=== PATIENT | male | born 1975 | race Caucasian/White ===

== ENCOUNTER 2024-02-07 10:26 | Emergency (ER) | payer OTHER, SELFPAY ==
[2024-02-07] MEDS ORDERED: FENTANYL CITR 100 MCG/2 ML ONE (10:42)
[2024-02-07] MEDS ORDERED: TDAP (DIPHTH,PERTUSS(ACELL),TET VAC) 0.5 ML VIAL IMVAC ONE (10:42)
--- NOTE | 2024-02-07 11:14 | RAD REPORT ---
EXAM DESCRIPTION: CT - Head C Spine Antione Feldman - 02/07/2024 10:53 am CLINICAL HISTORY: Head and neck injury with chest and abdominal pain status post fall. Head and neck pain . TECHNIQUE: Computed axial tomography of the head and cervical spine was obtained Computed axial tomography of the chest, abdomen and pelvis was obtained. 100 cc Isovue-300 was given intravenously coronal and sagittal reconstruction was performed. All CT scans are performed using dose optimization technique as appropriate and may include automated exposure control or mA/KV adjustment according to patient size. COMPARISON: None FINDINGS: An intracranial bleed is not seen. The ventricles are normal in caliber. An extra-axial fl uid collection is not noted. Fluid within the sinuses is not seen A cervical fracture is not seen. No dislocation is seen. Mild posterior subluxation C4 on C5 probably chronic. A mediastinal hematoma is not noted. A pleural effusion is not present. A lung contusion is not seen. The liver, spleen, pancreas, adrenals, kidneys and bladder do not demonstrate an acute traumatic inju ry Moderate anterior subluxation of L5 on S1 with sclerosis of the vertebral endplates. Spondylolysis L5 IMPRESSION: No acute intracranial abnormality is seen A cervical fracture is not visualized. If the patient continues have symptoms to suggest intracranial /spinal cord pathology then MRI would be recommended. No acute traumatic injury involving the chest, abdomen or pelvis is seen.
[2024-02-07 11:19] LABS: Absolute Basophils 0.1 K/uL (0-0.5); Absolute Eosinophils 0.2 K/uL (0-0.5); Absolute Lymphocytes (CBC) 1.8 K/uL (0.7-4.9); Absolute Monocytes 0.4 K/uL (0.1-1.3); Absolute Neutrophil 3.3 K/uL (1.8-8.0); Basophils % 1.1 % (0-1.3); Eosinophils % 3.2 % (0-4.4); Hematocrit 41.1 % (39.6-49.0); Hemoglobin 13.6 g/dL (13.6-17.9); Lymphocytes % 31.4 % (15.3-44.8); MCH 29.5 pg (27.0-35.0); MCHC 33.2 g/dL (32.0-36.0); MPV 8.1 fL (7.6-11.3); Monocytes % 7.6 % (3.3-12.3); Neutrophils % 56.7 % (41.7-73.7); Platelets 194 thou/uL (152-406); RBC Red Blood Cell Count 4.62 M/uL (4.33-5.43); Red Cell Distribution Width 14.2 % (12.1-15.2)
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
[2024-02-07 11:41] LABS: Albumin 3.6 g/dL (3.4-5.0); Albumin/Globulin Ratio 1.1 (1.1-1.8); Anion Gap 5.2 mEq/L (5.0-15.0); Bilirubin Direct 0.1 mg/dL (0-0.2); Bilirubin Indirect, Calculated 0.2 mg/dL (0.2-0.8); Bilirubin Total 0.3 mg/dL (0.2-1.0); Globulin 3.4 g/dL (2.3-3.5); Potassium 4.2 mEq/L (3.5-5.1)
[2024-02-07 12:01] VITALS: BP 129/75; TEMP 97.8; O2SAT 100
== END 2024-02-07 11:45 | disposition home or self-care (01) ==
LOC: ER 10:26
DX: S30.810A Abrasion of lower back and pelvis, initial encounter (principal); S20.211A Contusion of right front wall of thorax, initial encounter; W10.2XXA Fall (on)(from) incline, initial encounter; Z88.5 Allergy status to narcotic agent; Z88.8 Allergy status to other drugs, medicaments and biological substances
CPT/HCPCS: 85025; 80048; 36415; 86900; 86850; 82565; 86901; 80076; 70450; 72125; 71260; 74177; 96372; 96374; 99285; Q9967; J3010

== ENCOUNTER 2024-10-11 11:35 | Inpatient (IN) | payer OTHER ==
[2024-10-11] MEDS ORDERED: NA CHLORIDE 0.9% 1,000 ML ONE (12:23)
[2024-10-11] MEDS ORDERED: droPERidol 5 MG/2 ML VIAL ONE (12:23)
[2024-10-11] MEDS ORDERED: ONDANSETRON 4 MG/2 ML VIAL ONE (12:23)
[2024-10-11 12:48] LABS: Absolute Basophils 0.1 K/uL (0-0.5); Absolute Eosinophils 0.1 K/uL (0-0.5); Absolute Lymphocytes (CBC) 1.8 K/uL (0.7-4.9); Absolute Monocytes 0.5 K/uL (0.1-1.3); Basophils % 1.5 % (0-1.3); Eosinophils % 1.7 % (0-4.4); Hematocrit 45.1 % (39.6-49.0); Hemoglobin 15.3 g/dL (13.6-17.9); Lymphocytes % 24.4 % (15.3-44.8); MCH 30.5 pg (27.0-35.0); MCHC 33.9 g/dL (32.0-36.0); MCV 90.1 fL (80-100); MPV 7.2 fL (7.6-11.3); Monocytes % 6.8 % (3.3-12.3); Neutrophils % 65.6 % (41.7-73.7); Nucleated Red Blood Cells % 0.1 % (0-0); Platelets 279 thou/uL (152-406); RBC Red Blood Cell Count 5.01 M/uL (4.33-5.43); Red Cell Distribution Width 13.5 % (12.1-15.2)
[2024-10-11] MEDS ORDERED: HYDROMORPHONE HCL 1 MG/ML INJ ONE (12:51)
[2024-10-11 13:07] LABS: Albumin 3.9 g/dL (3.4-5.0); Anion Gap 9.1 mEq/L (5.0-15.0); Globulin 3.9 g/dL (2.3-3.5); Potassium 4.1 mEq/L (3.5-5.1); Protein, Total 7.8 g/dL (6.4-8.2)
--- NOTE | 2024-10-11 13:09 | RAD REPORT ---
EXAM: XR of the abdomen HISTORY: Abdominal pain ABD PAIN COMPARISON: None FINDINGS: XR of the abdomen shows a nonspecific, nonobstructive bowel gas pattern. Prominent constipa tion. No suspicious calcifications are seen. The bones are unremarkable. IMPRESSION: Prominent constipation.
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
[2024-10-11] MEDS ORDERED: NA CHLORIDE 0.9% 100 ML ONE (15:42)
[2024-10-11] MEDS ORDERED: PIPERACIL/TAZO 3.375 GM VIAL IV ONE (15:42)
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
[2024-10-11] MEDS: PIPER TAZO 3.375 GM in NA CHLORIDE 0.9% 100 ML IV SCH (17:00)
[2024-10-11 18:16] VITALS: O2SAT 99
[2024-10-11] MEDS: NA CHLORIDE 0.9% 1,000 ML IV SCH (18:51)
[2024-10-11 19:42] VITALS: BMI 24.3
[2024-10-12 04:37] LABS: Specific Gravity > 1.030 (1.005-1.030); Sqamous Epithelial None Seen /HPF (None Seen); Urine Bacteria None Seen /HPF (<20); Urine Bilirubin NEGATIVE (Negative); Urine Blood Negative (Negative); Urine Clarity Clear (Clear); Urine Color Light-Yellow (Yellow); Urine Culture Reflex Order NOT NEEDED; Urine Glucose NEGATIVE (Negative); Urine Ketones 2+ (Negative); Urine Microscopic Reflex YN ORDER UMIC; Urine Nitrite NEGATIVE (Negative); Urine Protein NEGATIVE (Negative); Urine RBC <5 /HPF (None Seen); Urine Urobilinogen Normal (Normal); Urine WBC <5 /HPF (<5); Urine pH 5.5 (5.0-7.0)
[2024-10-12 05:00] LABS: Barbiturates NEGATIVE (NEGATIVE); Benzodiazepines NEGATIVE (NEGATIVE); Cocaine POSITIVE (NEGATIVE); METHAMPHETAM POSITIVE (NEGATIVE); Methadone NEGATIVE (NEGATIVE); Opiates NEGATIVE (NEGATIVE); Phencyclidine NEGATIVE (NEGATIVE); THC Cannibis POSITIVE (NEGATIVE)
[2024-10-12 05:21] LABS: Absolute Basophils 0.1 K/uL (0-0.5); Absolute Eosinophils 0.1 K/uL (0-0.5); Absolute Lymphocytes (CBC) 1.8 K/uL (0.7-4.9); Absolute Monocytes 0.6 K/uL (0.1-1.3); Absolute Neutrophil 5.9 K/uL (1.8-8.0); Basophils % 0.7 % (0-1.3); Hematocrit 41.6 % (39.6-49.0); Hemoglobin 14.2 g/dL (13.6-17.9); Lymphocytes % 21.5 % (15.3-44.8); MCH 30.9 pg (27.0-35.0); MCHC 34.2 g/dL (32.0-36.0); MCV 90.1 fL (80-100); MPV 7.4 fL (7.6-11.3); Neutrophils % 69.8 % (41.7-73.7); Platelets 232 thou/uL (152-406); RBC Red Blood Cell Count 4.61 M/uL (4.33-5.43); Red Cell Distribution Width 13.7 % (12.1-15.2)
[2024-10-12 05:33] LABS: Anion Gap 11.6 mEq/L (5.0-15.0); Magnesium 2.1 mg/dL (1.6-2.4); Phosphorus 3.2 mg/dL (2.5-4.9); Potassium 3.6 mEq/L (3.5-5.1); Valproic Acid (Depakene) Level 3.1 mcg/mL (50.0-100.0)
[2024-10-12] MEDS: KCL 20 MEQ/100 mL IVPB 20 MEQ/100 ML BAG IV SCH (06:37)
[2024-10-12] MEDS: HYDROMORPHONE HCL 1 MG/ML INJ IV PRN (06:42)
--- NOTE | 2024-10-12 07:16 | P.PN ---
Date of Service: 10/12/24 Subjective ROS 10 point ROS as noted above, otherwise negative Physical Exam General: Oriented x3, Other (Sleeping) HEENT: Atraumatic, Normocephalic, PERRLA Neck: Supple Respiratory: Clear to auscultation bilaterally, Normal air movement Cardiovascular: Normal pulses, Regular rate/rhythm, Normal S1 S2 Capillary refill: <2 Seconds Gastrointestinal: Tenderness Musculoskeletal: No clubbing Integumentary: No rashes Neurological: Normal speech Vitals Reviewed Problem list Severe constipation 2/2 chronic volvulus vs internal henia with history of SBO Bipolar Substance abuse Marijuana and cigarette smoking abuse Assessment and Plan Severe constipation 2/2 chronic volvulus vs internal henia with history of SBO -CT abd/pelvis reports "Edema in the small bowel mesentery with a swirling pattern seen suggests chronic volvulus or internal hernia. This appears to be chronic in timeframe. There is also fecalization of distal small bowel which would suggest slow motility or small bowel dysbiosis." -KUB reports "XR of the abdomen shows a nonspecific, nonobstructive bowel gas pattern. Prominent constipation. No suspicious calcifications are seen. The bones are unremarkable." -NPO -Dr. Kumari consulted, surgery in the AM -Zosyn -Pain control Q3H -IVF Bipolar -Continue home medications Substance abuse Marijuana and cigarette smoking abuse -education for cessation -UDS positive for cocaine, THC, and amphetamine DVT ppx SCD, surgery in the AM Full code LOS 2-3 days Discharge Plan: Home Plan to discharge in: 48 Hours
[2024-10-12 09:19] VITALS: BP 134/71; TEMP 97.6
[2024-10-12] MEDS: DIVALPROEX ER 250 MG TAB PO SCH (10:52)
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
== END 2024-10-12 13:33 | disposition left against medical advice (07) | DRG 391 ==
LOC: ER 11:35 → ERHOLD 16:34 → 2ND 17:09
PROVIDERS: ADMIT Internal Medicine; ATTEND Internal Medicine
DX: K59.00 Constipation, unspecified (principal); K56.2 Volvulus; F31.9 Bipolar disorder, unspecified; F12.10 Cannabis abuse, uncomplicated; F14.19 Cocaine abuse with unspecified cocaine-induced disorder; K46.9 Unspecified abdominal hernia without obstruction or gangrene; F15.10 Other stimulant abuse, uncomplicated; F17.210 Nicotine dependence, cigarettes, uncomplicated; K63.8219 Small intestinal bacterial overgrowth, unspecified; Z87.19 Personal history of other diseases of the digestive system; Z53.29 Procedure and treatment not carried out because of patient's decision for other reasons
CPT/HCPCS: 36415; 74018; 74019; 74177; 80048; 80053; 80164; 80307; 81001; 83690; 83735; 84100; 85025; 96361; 96365; 96375; 99285; J1171; J1790; J2405; J2543; J3480; J7030; Q9967

== ENCOUNTER 2024-10-30 15:38 | Emergency (ER) | payer OTHER ==
--- NOTE | 2024-10-30 16:20 | RAD REPORT ---
EXAM: Chest Single View HISTORY: ABDOMINAL DISTENTION COMPARISON: None. FINDINGS: LUNGS/PLEURA: The lungs are clear. No pleural effusions or pneumothorax. No pulmonary edema. MEDIASTINUM: The mediastinal silhouette is within normal limits. CARDIAC: The cardiac silhouette is within normal limits. UPPER ABDOMEN: No significant abnormality. BONES: No acute abnormality. LINES/TUBES/OTHER: N/A IMPRESSION: No evidence of acute cardiopulmonary disease.
--- NOTE | 2024-10-30 16:45 | RAD REPORT ---
Abdomen Exam Limited: 10/30/2024 4:28 PM CLINICAL HISTORY: Abd pain;Abdominal distention STUDY: Limited right upper quadrant ultrasound of abdomen. COMPARISON: None. FINDINGS: Liver: Limited evaluation but grossly unremarkable. Bile ducts: No intrahepatic or extrahepatic biliary ductal dilatation. Common bile duct measures 3 mm. Gallbladder: Distended but otherwise unremarkable. Negative for cholelithiasis. No gallbladder wall t hickening. No sonographic Lino sign. IMPRESSION: Unremarkable exam.
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
[2024-10-31 00:27] VITALS: BP 141/96; TEMP 97.7; O2SAT 100
== END 2024-10-30 19:01 | disposition home or self-care (01) ==
LOC: ER 15:38
DX: R10.84 Generalized abdominal pain (principal); F17.210 Nicotine dependence, cigarettes, uncomplicated; Z88.5 Allergy status to narcotic agent; Z88.8 Allergy status to other drugs, medicaments and biological substances
CPT/HCPCS: 71045; 76705; 99282

== ENCOUNTER 2024-11-02 04:52 | Emergency (ER) | payer OTHER ==
[2024-11-02] MEDS ORDERED: NA CHLORIDE 0.9% 1,000 ML ONE (05:02)
[2024-11-02] MEDS ORDERED: MORPHINE 4 MG/ML SYR ONE (05:02)
[2024-11-02] MEDS ORDERED: ONDANSETRON 4 MG/2 ML VIAL ONE (05:02)
[2024-11-02 05:37] LABS: Albumin 3.5 g/dL (3.4-5.0); Albumin/Globulin Ratio 0.9 (1.1-1.8); Anion Gap 9.3 mEq/L (5.0-15.0); Bilirubin Total 0.5 mg/dL (0.2-1.0); Globulin 3.9 g/dL (2.3-3.5); Potassium 4.3 mEq/L (3.5-5.1); Protein, Total 7.4 g/dL (6.4-8.2)
[2024-11-02 05:45] LABS: Absolute Basophils 0.1 K/uL (0-0.5); Absolute Eosinophils 0.1 K/uL (0-0.5); Absolute Lymphocytes (CBC) 1.7 K/uL (0.7-4.9); Absolute Monocytes 0.6 K/uL (0.1-1.3); Absolute Neutrophil 3.1 K/uL (1.8-8.0); Basophils % 1.1 % (0-1.3); Eosinophils % 2.2 % (0-4.4); Hematocrit 43.9 % (39.6-49.0); Hemoglobin 15.1 g/dL (13.6-17.9); Lymphocytes % 30.2 % (15.3-44.8); MCH 30.7 pg (27.0-35.0); MCHC 34.4 g/dL (32.0-36.0); MCV 89.1 fL (80-100); MPV 7.1 fL (7.6-11.3); Monocytes % 10.6 % (3.3-12.3); Neutrophils % 55.9 % (41.7-73.7); Nucleated Red Blood Cells % 0.1 % (0-0); Platelets 252 thou/uL (152-406); RBC Red Blood Cell Count 4.93 M/uL (4.33-5.43); Red Cell Distribution Width 13.2 % (12.1-15.2)
[2024-11-02] MEDS ORDERED: LACTULOSE 20 GM/30 ML UCUP ONE (06:16)
[2024-11-02] MEDS ORDERED: BISACODYL 10 MG RECTAL SUPP ONE (06:17)
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
[2024-11-02 14:52] VITALS: TEMP 98.3
[2024-11-02 15:12] VITALS: BP 126/88; O2SAT 98
== END 2024-11-02 08:03 | disposition home or self-care (01) ==
LOC: ER 04:52
DX: R10.31 Right lower quadrant pain (principal); K59.00 Constipation, unspecified; Z72.0 Tobacco use
CPT/HCPCS: 96361; 85025; 36415; 83690; 80053; 74177; 96375; 96374; 99285; Q9967; J2405; J7030